=== PATIENT | female | born 1995 | race Caucasian/White ===

== ENCOUNTER 2016-12-19 17:12 | Emergency (ER) | payer BC, OTHER ==
[~2016-12-19] VITALS: Ht 157.5 cm; Wt 53.6 kg
[2016-12-19 17:15] VITALS: BP 110/68
[2016-12-19] MEDS ORDERED: AZITHROMYCIN 500 MG TABLET PO ONE (17:30)
[2016-12-19] MEDS ORDERED: CEFTRIAXONE 250 MG IM ONE (17:30)
[2016-12-19 18:13] LABS: PATH.CAST-FLAG NOT PRESENT; SPERM-FLAG NOT PRESENT; SRC-FLAG NOT PRESENT; XTAL-FLAG NOT PRESENT; YLC-FLAG NOT PRESENT
[2016-12-19] MEDS ORDERED: CEFTRIAXONE 250 MG ONE (18:17)
[2016-12-19] MEDS ORDERED: AZITHROMYCIN 250 MG TABLET ONE (18:18)
[2016-12-19 19:09] LABS: HCG UR OBC PASS
== END 2016-12-19 19:33 | disposition home or self-care (01) ==
LOC: ED 19:25
DX: R30.0 Dysuria (principal); R10.2 Pelvic and perineal pain
CPT/HCPCS: 81003; 81025; 87210; 87491; 87591; 87808; 96372; 99284; J0696